=== PATIENT | male | born 1940 | race Caucasian/White ===

== ENCOUNTER → 2021-06-04 08:11 | Outpatient (CLI) | payer MEDICARE, OTHER, SELFPAY ==
--- NOTE | ~2021-06-04 | US_ITS ---
US abdomen complete DATE: 06/04/2021 08:48 INDICATION: Chronic kidney disease TECHNIQUE: Real-time imaging and Doppler analysis of the abdomen COMPARISON: 06/01/2006 CT abdomen/aortic study FINDINGS: The pancreas is not well demonstrated due to overlying bowel gas. Hepatic steatosis. No hepatic space-occupying mass lesion is evident. Normal hepatopedal portal venou s flow. There are multiple shadowing echogenic foci within the gallbladder lumen, consistent with cholelithia sis. No gallbladder wall thickening or pericholecystic fluid collection. Negative sonographic Johnson' s sign. The common bile duct measures 5 mm, within normal limits. Right kidney measures approximately 10 cm length. 1.1 cm and 3.5 cm right renal cysts. There is diffu se increased echogenicity of the right renal parenchyma consistent with chronic renal disease. Left kidney measures 12.5 cm length. There is diffuse increased echogenicity of the left renal parenc hyma consistent with chronic renal disease. Normal splenic size. The urinary bladder is unremarkable. Inferior vena cava is unremarkable. There is ectasia of the distal abdominal aorta, measuring up to 2 .7 cm approximate maximal dimension. IMPRESSION: Cholelithiasis Hepatic steatosis Bilateral chronic renal disease Right renal cysts Reviewed, dictated and finalized at [facility]. Reviewed, dictated and finalized at [facility].
== END ==
PROVIDERS: PCP Family Medicine; Visit Provider Family Medicine
DX: N18.9 Chronic kidney disease, unspecified (principal); K80.20 Calculus of gallbladder without cholecystitis without obstruction; K86.0 Alcohol-induced chronic pancreatitis; N28.1 Cyst of kidney, acquired
CPT/HCPCS: 76700

== ENCOUNTER 2021-08-26 13:51 | Inpatient (IN) | payer MEDICARE, OTHER, SELFPAY ==
[2021-08-26] VITALS (7 sets, daily range): BP systolic 135–155; BP diastolic 60–68; PULSE 70–99; RESP 18–22; TEMP 36.7–38.3; O2SAT 91–100; BMI 33.4
--- NOTE | ~2021-08-26 | CT_ITS ---
EXAMINATION: CTA chest PE protocol EXAM DATE: 08/26/2021 17:01 INDICATION: Shortness of breath and chest pain. TECHNIQUE: Spiral CTA of the chest (pulmonary arteries) was performed with 100 cc Omnipaque 350 intr avenous contrast injection. Images were acquired during the pulmonary arterial phase. Coronal maxi mum intensity projection 3D-reconstructions were created by the technologist on dedicated workstation . Axial, coronal and sagittal reformatted images were reviewed. The dose-length product (DLP) for t his examination was 595.75 mGy-cm. The exposure was tailored according to patient size (auto mA exp osure control), and iterative reconstruction (ASIR) was used as additional dose reduction technique. Correlation is made to chest x-ray same date. FINDINGS: There are no pulmonary emboli in the 1st through 3rd order (central and interlobar) pulmon buddy arteries. Some loss of attenuation in the right basilar segmental pulmonary from respiratory mot ion, these regions not confidently evaluated. No Intraluminal filling defects identified. No thorac ic aortic dissection. There is left lower lobe medial segmental pneumonia, would favor bacterial or viral etiology given focality. There is trace left pleural effusion. Tracheobronchial tree is paten t. There is no mediastinal, hilar or axillary lymphadenopathy. There is no pneumothorax. Mild c ardiomegaly. There is mild to moderate coronary arterial calcification, arterial sclerosis. Upper a bdomen is unremarkable. There is thoracic spondylosis without osteoblastic or osteolytic lesions id entified. IMPRESSION: 1. Left lower lobe medial segmental pneumonia; recommend follow-up CT in 3 months to exclude any und erlying chronic process. 2. Trace left pleural effusion. 3. Cardiomegaly. 4. No pulmonary emboli suspected. Reviewed, dictated and finalized at location [facility]. 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 Left lower lobe medial segmental pneumonia; recommend follow-up CT in 3 mon ths to exclude any underlying chronic process. 2. Trace left pleural effusion. 3. Cardiomegaly. 4. No pulmonary emboli suspected.
--- NOTE | ~2021-08-26 | XR_ITS ---
EXAMINATION: XR chest 1V portable EXAM DATE: 08/26/2021 15:04 INDICATION: cp, sob, fever . TECHNIQUE: Portable AP frontal chest x-ray was obtained. Comparison is made to prior examination from 2008. FINDINGS: Some limitations from body habitus, underpenetration. The cardiac silhouette is enlarged. N o confluent consolidation, pneumothorax or pleural effusion suspected. There are bony degenerative c hanges. IMPRESSION: Cardiomegaly. Reviewed, dictated and finalized at location [facility]. L ATTORNEY IMPRESSION: Cardiomegaly.
--- NOTE | 2021-08-26 13:59 | ECG_ITS ---
Measurements Intervals [place] Rate: 89 P: 69 ND: 189 QRS: 17 QRSD: 102 T: 56 QT: 351 QTc: 427 Interpretive Statements SINUS RHYTHM VENTRICULAR PREMATURE COMPLEX BASELINE ARTIFACT- I, II, III, AVR, AVL, AVF BORDERLINE ECG Electronically Signed On 08-26-2021 14:53:11 PARAFFINER by Omar Coates D.O.
[2021-08-26 14:24] LABS: Basophils Percent Auto 0.2 % (0.2-1.2); Hematocrit 36.6 % (42.0-52.0); Hemoglobin 12.2 g/dL (14.0-18.0); Immature Granulocyte Absolute 0.09 K/mm3 (0.00-0.031); Immature Granulocyte Percent A 0.6 % (0-0.5); Lymphocytes Absolute Auto 0.91 K/mm3 (0.9-3.2); Lymphocytes Percent Auto 6.5 % (18.3-44.2); Mean Corpuscular HGB Conc 33.3 g/dl (32-36); Mean Corpuscular Hemoglobin 30.7 pg (26-34); Mean Corpuscular Volume 92.2 fl (80-100); Mean Platelet Volume 10.1 fl (7.4-10.4); Monocytes Absolute Auto 1.9 K/mm3 (0.1-0.6); Monocytes Percent Auto 13.6 % (2.6-8.5); Neutrophils Absolute Auto 11.1 K/mm3 (1.3-6.7); Neutrophils Percent Auto 79.1 % (45.5-73.1); Platelet Count Result 217 k/mm3 (150-375); Red Blood Count 3.97 M/mm3 (4.6-6.20)
[2021-08-26 14:36] LABS: INR 1.3; Partial Thromboplastin Time 31.1 SECONDS (22.3-36.8); Prothrombin Time 15.9 Seconds (11.1-14.7)
[2021-08-26 14:38] LABS: Alanine Aminotransferase 24 U/L (4-50); Albumin Level 4.1 g/dL (3.5-5.1); Alkaline Phosphatase 110 U/L (38-126); Anion Gap 10 mmol/L (8-16); Aspartate Amino Transferase 28 U/L (17-59); Bilirubin,Total 0.9 mg/dL (0.2-1.3); Blood Urea Nitrogen 22 mg/dL (9-20); Calcium 8.3 mg/dL (8.4-10.2); Carbon Dioxide 20 mmol/L (22-30); Chloride 97 mmol/L (98-107); Estimated CRCL calculation 43 ml/min; Estimated Glomerular Filt Rate 45; Glucose 134 mg/dL (65-110); Lipase 68 U/L (23-300); Potassium 4.4 mmol/L (3.4-5.0); Sodium 127 mmol/L (137-145)
[2021-08-26 14:50] LABS: Troponin I 0.017 ng/mL (0.000-0.034)
--- NOTE | 2021-08-26 15:33 | ED.SOB ---
HPI - SOB/Dyspnea General Chief Complaint: Shortness of Breath/Dyspnea Stated Complaint: sob Time Seen by Provider: 08/26/21 14:47 Source: RN notes reviewed History of Present Illness HPI Narrative: Patient presents emergency department from home for cough. Patient states that he began to feel sick on August 24. He states he had a cough this been nonproductive as well as generalized fatigue and low-grade fever. States today he developed midsternal chest pain in the lower midsternal chest that only occurs when he takes a deep inspiration but does not occur at any other time he denies any abdominal pain nausea vomiting diarrhea or any other symptoms states that he took a Tylenol early this morning but is had no other medical. Patient states he has had a Covid vaccine as well as booster. Patient states he has been feeling more weak states that he fell today while trying to put on his pants and it took him numerous attempts just to be able to get up on his own he lives by himself Related Data Home Medications Medication Instructions Recorded Confirmed aspirin 81 mg tablet,delayed 81 mg PO DAILY 07/30/19 08/26/21 release Allergies Allergy/AdvReac Type Severity Reaction Status Date / Time No Known Allergies Allergy Mild Verified 08/26/21 15:34 Review of Systems Review of Systems: Gen.: Fever ENT: Denies congestion Respiratory: Ports shortness of breath and CV: Reports midsternal chest pain worse with deep inspiration GI: Denies abdominal pain nausea, emesis or diarrhea Musculoskeletal: Denies back pain or muscle pain Neuro: Denies numbness, tingling, weakness or focal weakness Skin: Denies rash Except as documented, all other systems reviewed and negative [facility] Past Medical History Medical History (Updated 08/26/21 @ 18:02 by Joselito Browne DO) Benign essential HTN Surgical History Surgical History H/O hernia repair History of appendectomy History of back surgery History of hip replacement Family History Family History Mother Patient's mother is , Onset Age: 98 Father Patient's father is , Onset Age: 49 Sibling Family history of malignant neoplasm of breast in first degree relative, Onset Age: 44 Other Family history of cardiovascular disease Social History Social History Alcohol intake: current Substance use: never Substance use type: does not use Gender identity (if verbalized by the patient): Male Exam Narrative: APPEARANCE: No acute distress, nontoxic, resting in bed EYES: EOMI HEENT: Normocephalic, atraumatic, OMM RESPIRATORY: No respiratory distress Clear to auscultation bilaterally with no rhonchi wheezing or rales. CARDIOVASCULAR: Regular rate and rhythm without murmurs rubs or gallops. ABDOMINAL: Soft, nontender, nondistended, no rebound or guarding MUSCULOSKELETAl: Moves all extremities. No clubbing, cyanosis or edema. NEURO: Awake and alert. Following commands, speech normal, no focal deficits SKIN:: Warm, dry. No rashes lesions or abrasions PSYCHIATRIC: Normal affect/mood, Course Course Emergency Course: Discussed Dr. Valentine presentation work-up agrees with admission at this time Discussed with patient and family results of workup and diagnosis. Discussed need for admission. Patient and family understand and agree to current treatment plan Vital Signs Vital signs: Vital Signs Temperature 100.8 F H 08/26/21 13:57 Pulse Rate 90 08/26/21 13:57 Respiratory Rate 20 08/26/21 13:57 Blood Pressure 155/61 H 08/26/21 13:57 Pulse Oximetry 97 08/26/21 13:57 Temperature 99.5 F 08/26/21 17:38 Pulse Rate 75 08/26/21 17:38 Respiratory Rate 22 H 08/26/21 17:38 Blood Pressure 135/60 08/26/21 17:38 Pulse Oximetry 92 08/26/21 1
[2021-08-26] MEDS: ASPIRIN 81 MG CHEWABLE TABLET 324 MG PO (15:56)
[2021-08-26] MEDS: ACETAMINOPHEN 500 MG TABLET 1000 MG PO (15:57)
[2021-08-26 16:15] LABS: D Dimer 2.36 ug/mL (<0.48)
[2021-08-26 16:25] LABS: Lactic Acid Reflex 1.2 mmol/L (0.7-2.1)
[2021-08-26 16:41] LABS: Lactate Dehydrogenase 442 U/L (313-618)
[2021-08-26] MEDS: SODIUM CHLORIDE 0.9% IV 1,000 ML 999 ML IV CONT (17:35)
[2021-08-26] MEDS: SODIUM CHLORIDE 0.9% IV 1,000 ML 80 ML IV CONT ×2 (19:30→20:49)
--- NOTE | 2021-08-26 19:53 | ADMGEN ---
This patient, Wilfredo Gutiérrez, was admitted to Medical Room 244-. Patient/family oriented to hospital policies and general routines including ID bracelet, bed and alarms, visiting hours, pain management, procedures, bathroom and other care routines, personal items, smoking policy, room service/diet, and visiting hours. Information on how to activate the Rapid Response Team has been discussed. Patient/Family are encouraged to report perceived risks to care and to ask questions if they do not understand what they are told or what they should do.
[2021-08-26 21:08] LABS: Troponin I 0.018 ng/mL (0.000-0.034)
[2021-08-27] VITALS (8 sets, daily range): BP systolic 120–153; BP diastolic 59–63; PULSE 72–81; RESP 16–18; TEMP 36.8–38.8; O2SAT 91–93
[2021-08-27] MEDS: ACETAMINOPHEN 325 MG TABLET 650 MG PO ×3 (00:31→21:32)
[2021-08-27] MEDS: IPRATROPIUM BR 0.02% INH SOLN 0.5 MG/2.5 ML VIAL INHALATION (00:51)
[2021-08-27] MEDS: ALBUTEROL SULFATE NEB 2.5 MG/3 ML INH 1.25 MG INHALATION (00:51)
[2021-08-27 06:16] LABS: Basophils Percent Auto 0.3 % (0.2-1.2); Eosinophils Percent Auto 0.1 % (0-4.4); Hematocrit 35.4 % (42.0-52.0); Hemoglobin 11.3 g/dL (14.0-18.0); Immature Granulocyte Absolute 0.09 K/mm3 (0.00-0.031); Immature Granulocyte Percent A 0.7 % (0-0.5); Lymphocytes Absolute Auto 1.57 K/mm3 (0.9-3.2); Lymphocytes Percent Auto 11.5 % (18.3-44.2); Mean Corpuscular HGB Conc 31.9 g/dl (32-36); Mean Corpuscular Hemoglobin 29.7 pg (26-34); Mean Corpuscular Volume 93.2 fl (80-100); Mean Platelet Volume 10.4 fl (7.4-10.4); Monocytes Absolute Auto 1.7 K/mm3 (0.1-0.6); Monocytes Percent Auto 12.7 % (2.6-8.5); Neutrophils Absolute Auto 10.2 K/mm3 (1.3-6.7); Neutrophils Percent Auto 74.7 % (45.5-73.1); Platelet Count Result 239 k/mm3 (150-375); Red Cell Distribution Width 13.1 % (11.5-14.5); White Blood Count 13.7 K/mm3 (4.5-10.0)
[2021-08-27 06:29] LABS: Alanine Aminotransferase 25 U/L (4-50); Albumin Level 3.4 g/dL (3.5-5.1); Alkaline Phosphatase 94 U/L (38-126); Anion Gap 12 mmol/L (8-16); Aspartate Amino Transferase 33 U/L (17-59); Bilirubin,Total 0.6 mg/dL (0.2-1.3); Blood Urea Nitrogen 23 mg/dL (9-20); Calcium 7.9 mg/dL (8.4-10.2); Carbon Dioxide 21 mmol/L (22-30); Chloride 96 mmol/L (98-107); Estimated CRCL calculation 39 ml/min; Estimated Glomerular Filt Rate 39; Glucose 114 mg/dL (65-110); Potassium 4.4 mmol/L (3.4-5.0); Sodium 129 mmol/L (137-145)
[2021-08-27] MEDS: allopurinoL 150 MG TABLET PO (10:38)
[2021-08-27] MEDS: ASPIRIN 81 MG ENTERIC TABLET PO (10:38)
[2021-08-27] MEDS: LOSARTAN POTASSIUM 50 MG TABLET PO (10:38)
[2021-08-27] MEDS: ATORVASTATIN 40 MG TABLET PO (10:38)
[2021-08-27] MEDS: ENOXAPARIN 40 MG/0.4 ML SYRINGE SUB-Q (10:39)
--- NOTE | 2021-08-27 15:24 | PM.IMHP ---
H&P: HPI History of Present Illness Date/Time: 08/27/21 15:24 Patient is 81-year-old male past medical history of essential hypertension, hyperlipidemia, gout presents to ED with complaints of dyspnea cough. Symptom onset was 3 days ago. Nonproductive cough leading to fatigue and fevers. He has some chest pain associated with cough. He has been vaccinated for COVID-19 and also had a booster shot. Patient was too weak to around his house. He does not recall getting pneumonias in the past. In the ED: Labs showed leukocytosis 14,000, negative for COVID-19, chest x-ray CTA show left lower lobe segmental pneumonia without pulmonary embolism. Patient to be admitted for weakness from acute acquired pneumonia. His breathing comfortably on room air. Patient was very weak and will likely need physical therapy. Chief Complaint: cough Review of Systems Review of Systems: Constitutional: No Fever, No Chills, No Night Sweat. He endorses malaise and fatigue, generalized weakness. ENT/Mouth: No Hearing Changes, No Ear Pain, No Nasal Congestion, No Sinus Pain, No Hoarseness, No sore throat, No Rhinorrhea, No Swallowing Difficulty Eyes: No Eye Pain, No Redness, No Vision Changes Cardiovascular: No Chest Pain, No Palpitations, No Dyspnea on Exertion, No Orthopnea, No Claudication, No Edema Respiratory: Endorses cough and shortness of breath. He denies wheezing Gastrointestinal: No Nausea, No Vomiting, No Diarrhea, No Constipation, No Abdominal Pain, No Heartburn, No Hematochezia, No Melena Genitourinary: No Dysuria, No Urinary Frequency, No Hematuria, No Urinary Incontinence, No Urgency Musculoskeletal: No Arthralgias, No Myalgias, No Joint Swelling, No Joint Stiffness, No Back Pain Skin: No Skin Lesions, No Pruritis, No Hair Changes Neuro: No Weakness, No Numbness, No Paresthesias, No Loss of Consciousness, No Syncope, No Dizziness, No Headache Psych: No Anxiety/Panic, No Depression, No Insomnia Heme: No Bruising, No Bleeding Lymph: No Adenopathy Endocrine: No Polyuria, No Polydipsia, No Temperature Intolerance PMFSH Past Medical History Medical History Benign essential HTN Gout, unspecified Mixed hyperlipidemia Surgical History Surgical History H/O hernia repair History of appendectomy History of back surgery History of hip replacement Family History Family History Mother Patient's mother is , Onset Age: 98 Father Patient's father is , Onset Age: 49 Sibling Family history of malignant neoplasm of breast in first degree relative, Onset Age: 44 Other Family history of cardiovascular disease Social History Social History Smoking status: Former smoker Tobacco type: cigarettes Smoking end date: 09/20/73 Alcohol intake: current Drinks per week: 1 Substance use: never Substance use type: does not use Gender identity (if verbalized by the patient): Male Spiritual care concerns: No Meds Home Medications and Allergies Home Medications Medication Instructions Recorded Confirmed Type aspirin 81 mg tablet,delayed 81 mg PO DAILY 07/30/19 08/26/21 History release atorvastatin 40 mg tablet See Rx Instructions .ROUTE 12/13/20 08/26/21 Rx .COMPLEX #90 each losartan 50 mg tablet 50 mg PO DAILY #90 tablet 05/16/21 08/26/21 Rx allopurinol 300 mg tablet 150 mg PO DAILY #90 tablet 06/05/21 08/26/21 Rx Allergies Allergy/AdvReac Type Severity Reaction Status Date / Time No Known Allergies Allergy Mild Verified 08/26/21 15:34 Vital Signs Vital Signs - 24 hr 08/26/21 15:50 08/26/21 17:38 08/26/21 19:51 Temperature 37.5 C 36.7 C Pulse Rate 78 75 70 Respiratory Rate 22 H 18 Blood Pressure 135/60 155/68 H
[2021-08-28 06:00] VITALS: BP 149/69; PULSE 86; RESP 16; TEMP 37.6; O2SAT 94
[2021-08-28 06:20] LABS: Basophils Percent Auto 0.3 % (0.2-1.2); Eosinophils Percent Auto 0.2 % (0-4.4); Hematocrit 34.3 % (42.0-52.0); Hemoglobin 11.3 g/dL (14.0-18.0); Immature Granulocyte Absolute 0.09 K/mm3 (0.00-0.031); Immature Granulocyte Percent A 0.8 % (0-0.5); Lymphocytes Absolute Auto 0.86 K/mm3 (0.9-3.2); Lymphocytes Percent Auto 7.2 % (18.3-44.2); Mean Corpuscular HGB Conc 32.9 g/dl (32-36); Mean Corpuscular Hemoglobin 30.5 pg (26-34); Mean Corpuscular Volume 92.5 fl (80-100); Mean Platelet Volume 10.1 fl (7.4-10.4); Monocytes Absolute Auto 1.6 K/mm3 (0.1-0.6); Monocytes Percent Auto 13.1 % (2.6-8.5); Neutrophils Absolute Auto 9.4 K/mm3 (1.3-6.7); Neutrophils Percent Auto 78.4 % (45.5-73.1); Platelet Count Result 244 k/mm3 (150-375); Red Blood Count 3.71 M/mm3 (4.6-6.20); Red Cell Distribution Width 13.1 % (11.5-14.5); White Blood Count 11.9 K/mm3 (4.5-10.0)
[2021-08-28 06:33] LABS: Anion Gap 10 mmol/L (8-16); Blood Urea Nitrogen 21 mg/dL (9-20); Carbon Dioxide 18 mmol/L (22-30); Chloride 98 mmol/L (98-107); Estimated CRCL calculation 44 ml/min; Estimated Glomerular Filt Rate 45; Glucose 116 mg/dL (65-110); Sodium 126 mmol/L (137-145)
[2021-08-28] MEDS: ENOXAPARIN 40 MG/0.4 ML SYRINGE SUB-Q (09:45)
[2021-08-28] MEDS: ATORVASTATIN 40 MG TABLET PO (09:45)
[2021-08-28] MEDS: ASPIRIN 81 MG ENTERIC TABLET PO (09:45)
[2021-08-28] MEDS: LOSARTAN POTASSIUM 50 MG TABLET PO (09:45)
[2021-08-28] MEDS: allopurinoL 150 MG TABLET PO (09:45)
--- NOTE | 2021-08-28 12:03 | PCPTNOTE ---
Attempted to see patient for Physical Therapy session this date; patient refused. No reason given, patient just stated no, not today
[2021-08-28 14:00] VITALS: BP 129/59; PULSE 95; RESP 16; TEMP 36.8; O2SAT 71
[2021-08-28] MEDS: guaiFENesin 12 HR 600 MG TABCR 1200 MG PO ×2 (15:04→21:01)
--- NOTE | 2021-08-28 16:45 | PM.IMPN ---
Progress Note: A&P Assessment and Plan (1) Sepsis: Code(s): A41.9 - Sepsis, unspecified organism Status: Acute (2) Community acquired pneumonia: Code(s): J18.9 - Pneumonia, unspecified organism Status: Acute (3) Chronic renal insufficiency: Code(s): N18.9 - Chronic kidney disease, unspecified Status: Acute (4) Hyponatremia: Code(s): E87.1 - Hypo-osmolality and hyponatremia Status: Acute (5) Benign essential HTN: Code(s): I10 - Essential (primary) hypertension Status: Acute Additional Plan # community-acquired pneumonia, left lower lobe -segmental left lower lobe pneumonia -antibiotics:azithromycin, cefepime from 08/27/2021- -patient had fever yesterday despite azithromycin Rocephin, antibiotics changed to cefepime and azithromycin on 08/27/2021, no subsequent fevers, clinical improvement and decrease of leukocytosis -keep oxygen saturation greater than 90%, currently on room air -stopping IV fluids -p.r.n. Tylenol for pain or fever. 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 -sodium 129, likely due to dehydration -DALIA creatinine at 1.7 improved to 1.5, baseline appears to be around 1.4 -sodium dropped to 126 # generalized weakness -likely secondary to pneumonia infection, continue physical therapy evaluation treatment, patient will likely go home may need home health # chronic conditions -essential hypertension: Continue Cozaar 50 mg daily (kidney function appears to be more chronic) -hyperlipidemia: Continue Lipitor 40 mg daily, aspirin 81 mg daily -gout: Continue on allopurinol 150 mg daily Diet: Heart healthy DVT prophylaxis: Lovenox Code status: Full code Disposition: Pending clinical course, PT and OT evaluate Subjective Date/time seen: 08/28/21 16:45 Patient seen examined. He is doing well today. Afebrile. Originally he was started on Rocephin azithromycin and had a fever despite being on those antibiotics. Repeat blood cultures were done and antibiotic was changed to cefepime and azithromycin. Since the change she has had no more fevers and is doing well. Will continue for couple more days and then discharge him on a home regimen. Leukocytosis starting to improve. Patient denies fever, chills, nausea, vomiting, diarrhea. He is having bowel movements but still feels weak. Review of Systems Review of Systems: All systems reviewed & are unremarkable except as noted in HPI and below Exam Narrative: - GENERAL: Pleasant elderly male in no acute distress breathing comfortably on room air. - EYES: EOMI. Anicteric. - HENT: Moist mucous membranes. - LUNGS: Coarse lung sounds, no wheezing or rales. - CARDIOVASCULAR: Regular rate and rhythm. No murmur. No JVD. - ABDOMEN: Soft, non-tender and non-distended. No palpable masses. - EXTREMITIES: No edema. Peripheral pulses 2+. Non-tender. - NEUROLOGIC: No focal neurological deficits. CN II-XII grossly intact. 5/5 muscle strength upper extremities. I did not assess his gait - PSYCHIATRIC: Awake, Alert and oriented x 3. Appropriate mood and affect. - SKIN: No rashes or lesions. Warm. - LYMPH: No cervical lymphadenopathy. Objective Data Vital Signs Vital Signs: Vital Signs - 24 hr 08/27/21 22:00 08/28/21 06:00 08/28/21 14:00 Temperature 36.8 C 37.6 C 36.8 C Pulse Rate 81 86 95 Respiratory Rate 16 16 16 Blood Pressure 153/63 H 149/69 H 129/59 L Pulse Oximetry 93 94 71 L Intake/Output Intake/Output: Intake & Output 08/25/21 08/26/21 08/27/21 08/28/21 23:59 23:59 23:59 23:59 Intake Total 2300 2530 1420 Output Total 350 900 Balance 2300 2180 520 Meds/Results Medications: Active Medications Generic Name Dose Route Start Last Admin Trade Name Freq PRN Reason Stop Dose Admin Acetaminophen 650 mg 08/26/21 23:46 08/27/21 21:32 Acetaminophen 325 Mg Tabl
[2021-08-28 22:00] VITALS: BP 145/64; PULSE 71; RESP 18; TEMP 37.1; O2SAT 96
[2021-08-29 06:00] VITALS: BP 157/73; PULSE 73; RESP 16; TEMP 37.1; O2SAT 94
[2021-08-29 06:10] LABS: Basophils Percent Auto 0.3 % (0.2-1.2); Eosinophils Absolute Auto 0.2 K/mm3 (0-0.3); Eosinophils Percent Auto 2.2 % (0-4.4); Hematocrit 31.7 % (42.0-52.0); Hemoglobin 10.4 g/dL (14.0-18.0); Immature Granulocyte Absolute 0.07 K/mm3 (0.00-0.031); Immature Granulocyte Percent A 0.8 % (0-0.5); Lymphocytes Absolute Auto 1.64 K/mm3 (0.9-3.2); Mean Corpuscular HGB Conc 32.8 g/dl (32-36); Mean Corpuscular Hemoglobin 30.4 pg (26-34); Mean Corpuscular Volume 92.7 fl (80-100); Mean Platelet Volume 10.1 fl (7.4-10.4); Monocytes Absolute Auto 1.5 K/mm3 (0.1-0.6); Neutrophils Absolute Auto 5.7 K/mm3 (1.3-6.7); Neutrophils Percent Auto 62.7 % (45.5-73.1); Platelet Count Result 253 k/mm3 (150-375); Red Blood Count 3.42 M/mm3 (4.6-6.20); Red Cell Distribution Width 13.2 % (11.5-14.5); White Blood Count 9.1 K/mm3 (4.5-10.0)
[2021-08-29 06:24] LABS: Anion Gap 10 mmol/L (8-16); Blood Urea Nitrogen 19 mg/dL (9-20); Calcium 7.9 mg/dL (8.4-10.2); Carbon Dioxide 23 mmol/L (22-30); Chloride 98 mmol/L (98-107); Estimated CRCL calculation 44 ml/min; Estimated Glomerular Filt Rate 45; Glucose 101 mg/dL (65-110); Potassium 3.9 mmol/L (3.4-5.0); Sodium 131 mmol/L (137-145)
[2021-08-29] MEDS: ATORVASTATIN 40 MG TABLET PO (09:25)
[2021-08-29] MEDS: LOSARTAN POTASSIUM 50 MG TABLET PO (09:25)
[2021-08-29] MEDS: ASPIRIN 81 MG ENTERIC TABLET PO (09:25)
[2021-08-29] MEDS: guaiFENesin 12 HR 600 MG TABCR 1200 MG PO ×2 (09:25→20:15)
[2021-08-29] MEDS: allopurinoL 150 MG TABLET PO (09:25)
[2021-08-29] MEDS: ENOXAPARIN 40 MG/0.4 ML SYRINGE SUB-Q (09:25)
[2021-08-29 14:33] VITALS: BP 124/62; PULSE 64; RESP 16; TEMP 36.9; O2SAT 98
--- NOTE | 2021-08-29 16:22 | PM.IMPN ---
Progress Note: A&P Assessment and Plan (1) Sepsis: Code(s): A41.9 - Sepsis, unspecified organism Status: Acute (2) Community acquired pneumonia: Code(s): J18.9 - Pneumonia, unspecified organism Status: Acute (3) Chronic renal insufficiency: Code(s): N18.9 - Chronic kidney disease, unspecified Status: Acute (4) Bacteremia due to Gram-positive bacteria: Code(s): R78.81 - Bacteremia Status: Acute Additional Plan # community-acquired pneumonia, left lower lobe # sepsis due to pneumonia, resolved # gram-positive cocci bacteremia -segmental left lower lobe pneumonia -antibiotics:azithromycin 08/27-08/29, cefepime from 08/27/2021-, vancomycin 08/29/2021- -patient had fever yesterday despite azithromycin Rocephin, antibiotics changed to cefepime and azithromycin on 08/27/2021, no subsequent fevers, clinical improvement and decrease of leukocytosis. blood cultures growing Gram-positive cocci, will continue vancomycin until we see what is growing, possibility of MRSA. repeat blood cultures, possible contaminant however due to his critical illness on presentation this may be a real bacteremia -keep oxygen saturation greater than 90%, currently on room air -p.r.n. Tylenol for pain or fever -elevated D-dimer 2.36, CTA was done showing pneumonia left lower lobe, no PE - leukocytosis normalized # hypovolemic hyponatremia # acute kidney injury on CKD stage IIIB -sodium up to 131 -DALIA creatinine at 1.7 improved to 1.5, baseline appears to be around 1.4 -will trend # generalized weakness -likely secondary to pneumonia infection and possible bacteremia, continue physical therapy evaluation treatment, patient will need walker and will go home with home health # chronic conditions -essential hypertension: Continue Cozaar 50 mg daily (kidney function appears to be more chronic) -hyperlipidemia: Continue Lipitor 40 mg daily, aspirin 81 mg daily -gout: Continue on allopurinol 150 mg daily Diet: Heart healthy DVT prophylaxis: Lovenox Code status: Full code Disposition: Home with home health, and a walker (previously uses cane), awaiting blood culture results Subjective Date/time seen: 08/29/21 16:22 Patient seen and examined. Is clinically doing well on the cefepime, vital signs are normal. His labs are normalizing. Blood cultures from 08/27/2021 growing Gram-positive cocci likely Staph infection. Likely bacteremia secondary to pneumonia. We will make sure this is not a contaminant. I am adding vancomycin today for possible MRSA. Continue cefepime, stopping Zithromax. Will repeat blood cultures today. It appears blood cultures from 08/26/2021 have been negative and the subsequent blood cultures the next day when he had a fever were positive. At this time I think it is prudent to make sure we finding cultures and sensitivities for his infection to curate a more specific antibiotic plan. Otherwise plan will be home with home health with walker. Patient denies fever, chills, nausea, vomiting, diarrhea. He endorses weakness but feels better. Review of Systems Review of Systems: All systems reviewed & are unremarkable except as noted in HPI and below Exam Narrative: - GENERAL: Pleasant elderly male in no acute distress breathing comfortably on room air. - EYES: EOMI. Anicteric. - HENT: Moist mucous membranes. - LUNGS: Coarse lung sounds, no wheezing or rales. - CARDIOVASCULAR: Regular rate and rhythm. No murmur. No JVD. - ABDOMEN: Soft, non-tender and non-distended. No palpable masses. - EXTREMITIES: No edema. Peripheral pulses 2+. Non-tender. - NEUROLOGIC: No focal neurological deficits. CN II-XII grossly intact. 5/5 muscle strength upper extremities. - PSYCHIATRIC: Awake, Alert and oriented x 3. Appropriate mood and affect. - SKIN: No rashes or lesions. Warm. - LYMPH: No cervical lymphadenopathy. Objective Data Vital Signs Vital Signs: Vital Signs - 24 hr 08/28/21 22:00 08/29/21 06
[2021-08-29 20:15] VITALS: RESP 18; O2SAT 96
[2021-08-29 22:00] VITALS: BP 133/62; PULSE 70; RESP 18; TEMP 37.1; O2SAT 96
--- NOTE | 2021-08-30 | ECHO_ITS ---
Patient Info Name: Wilfredo Gutiérrez Age: 81 years : 1940 Gender: Male Ht: 71 in Wt: 239 lbs BSA: 2.36 m2 HR: 66 bpm BP: 156 / 71 mmHg Technical Quality: Good Exam Date: 08/30/2021 1:52 PM Exam Location: [facility] Patient Status: Inpatient Admit Date: 08/27/2021 Staff Ordering Physician: Dany Valentine DO Fretted Instrument Repairer: Jarred Johnson, RADHA, RT Attending Provider: Dany Valentine DO Referring Physician: Serge NATION; Exam Type: CA echo doppler color flow Study Info Indications R65.20 - Severe sepsis without septic shock Complete two-dimensional, color flow and Doppler transthoracic echocardiogram is performed. Strain analysis performed. Summary 1. Complete two-dimensional, color flow and Doppler transthoracic echocardiogram is performed. 2. Left ventricular chamber dimension is normal. 3. Left ventricular systolic function is preserved, estimated at 50-55%. 4. There is mildly increased left ventricular wall thickness. 5. The left ventricular diastolic function is grade I diastolic dysfunction. 6. E/e' 11 is mildly elevated. 7. Global longitudinal strain is abnormal at -14.7%. 8. Left atrial chamber dimension is mildly enlarged. 9. Right atrial chamber dimension is mildly enlarged. 10. There is moderate aortic valve sclerosis. 11. There is trace aortic valve regurgitation. 12. The mitral valve has mildly calcified annulus. 13. There is mild mitral valve regurgitation. 14. Mild pulmonary hypertension, estimated pulmonary arterial systolic pressure is 41 mmHg. 15. Dilated inferior vena cava with >50% collapse upon inspiration consistent with elevated right atrial pressure, 10 mmHg. Left Ventricle E/e' 11 is mildly elevated. Global longitudinal strain is abnormal at -14.7%. Left ventricular chamber dimension is normal. Left ventricular systolic function is preserved, estimated at 50-55%. There is mildly increased left ventricular wall thickness. The left ventricular diastolic function is grade I diastolic dysfunction. Right Ventricle Right ventricular systolic function is normal and with normal TAPSE 2.5 cm. Right ventricular chamber dimension is normal. Left Atria Left atrial chamber dimension is mildly enlarged. Right Atria Right atrial chamber dimension is mildly enlarged. Aortic Valve The aortic valve is trileaflet. There is moderate aortic valve sclerosis. There is no aortic valve stenosis. There is trace aortic valve regurgitation. Pulmonic Valve There is no pulmonic regurgitation. Mitral Valve The mitral valve has mildly calcified annulus. There is no mitral valve stenosis. There is mild mitral valve regurgitation. Tricuspid Valve There is no tricuspid valve regurgitation. Mild pulmonary hypertension, estimated pulmonary arterial systolic pressure is 41 mmHg. Pericardium/Pleural There is no pericardial effusion. Inferior Vena Cava Dilated inferior vena cava with >50% collapse upon inspiration consistent with elevated right atrial pressure, 10 mmHg. Aorta The aortic root size at the sinus of Valsalva is normal. Left Ventricular Outflow Tract Name Value Normal LVOT 2D LVOT Diameter 2.2 cm LVOT Doppler
[2021-08-30 05:25] LABS: Hematocrit 32.7 % (42.0-52.0); Hemoglobin 10.4 g/dL (14.0-18.0); Mean Corpuscular HGB Conc 31.8 g/dl (32-36); Mean Corpuscular Hemoglobin 29.5 pg (26-34); Mean Corpuscular Volume 92.6 fl (80-100); Platelet Count Result 293 k/mm3 (150-375); Red Blood Count 3.53 M/mm3 (4.6-6.20); Red Cell Distribution Width 13.2 % (11.5-14.5); White Blood Count 9.3 K/mm3 (4.5-10.0)
[2021-08-30 06:00] VITALS: BP 156/71; PULSE 65; RESP 20; TEMP 36.1; O2SAT 98
[2021-08-30 08:35] LABS: Anion Gap 10 mmol/L (8-16); Blood Urea Nitrogen 20 mg/dL (9-20); Calcium 8.2 mg/dL (8.4-10.2); Carbon Dioxide 25 mmol/L (22-30); Chloride 99 mmol/L (98-107); Estimated CRCL calculation 44 ml/min; Estimated Glomerular Filt Rate 45; Glucose 100 mg/dL (65-110); Potassium 4.5 mmol/L (3.4-5.0); Sodium 134 mmol/L (137-145)
[2021-08-30] MEDS: LOSARTAN POTASSIUM 50 MG TABLET PO (09:31)
[2021-08-30] MEDS: ATORVASTATIN 40 MG TABLET PO (09:31)
[2021-08-30] MEDS: allopurinoL 150 MG TABLET PO (09:31)
[2021-08-30] MEDS: guaiFENesin 12 HR 600 MG TABCR 1200 MG PO ×2 (09:31→20:21)
[2021-08-30] MEDS: ENOXAPARIN 40 MG/0.4 ML SYRINGE SUB-Q (09:31)
[2021-08-30] MEDS: ASPIRIN 81 MG ENTERIC TABLET PO (09:31)
--- NOTE | 2021-08-30 14:36 | PM.IMPN ---
Progress Note: A&P Assessment and Plan (1) Bacteremia due to Gram-positive bacteria: Code(s): R78.81 - Bacteremia Status: Acute (2) Sepsis: Code(s): A41.9 - Sepsis, unspecified organism Status: Acute (3) Community acquired pneumonia: Code(s): J18.9 - Pneumonia, unspecified organism Status: Acute (4) Chronic renal insufficiency: Code(s): N18.9 - Chronic kidney disease, unspecified Status: Acute Additional Plan # community-acquired pneumonia, left lower lobe # sepsis due to pneumonia, resolved # blood cultures Staph lugdunesis -segmental left lower lobe pneumonia -antibiotics:azithromycin 08/27-08/29, cefepime from 08/27/2021-, vancomycin 08/29/2021- -for now will treat as true blood infection, continue antibiotics until speciation, awaiting results, likely give 2 weeks of antibiotics -echocardiogram today with Gram-positive cocci bacteremia -keep oxygen saturation greater than 90%, currently on room air # hypovolemic hyponatremia # acute kidney injury on CKD stage IIIB -sodium up to 134 -DALIA creatinine at 1.7 improved to 1.5, baseline appears to be around 1.4 -will trend # generalized weakness -likely secondary to pneumonia infection and possible bacteremia, continue physical therapy evaluation treatment, patient will need walker and will go home with home health # chronic conditions -essential hypertension: Continue Cozaar 50 mg daily (kidney function appears to be more chronic) -hyperlipidemia: Continue Lipitor 40 mg daily, aspirin 81 mg daily -gout: Continue on allopurinol 150 mg daily Diet: Heart healthy DVT prophylaxis: Lovenox Code status: Full code Disposition: Home with home health, and a walker (previously uses cane), awaiting blood culture sensitivities. Likely home tomorrow Subjective Date/time seen: 08/30/21 14:36 Patient seen examined. Blood culture growing Staph Lugdunesis with his clinical symptoms I a.m. in favor treating this is a true infection. Echocardiogram today. Will likely discharge tomorrow. Will give 2 weeks of treatment. Sensitivity still pending. Patient denies fever, chills, nausea, vomiting, diarrhea. He feels still weak but improving daily. Review of Systems Review of Systems: All systems reviewed & are unremarkable except as noted in HPI and below Exam Narrative: - GENERAL: Pleasant elderly male in no acute distress breathing comfortably on room air. - EYES: EOMI. Anicteric. - HENT: Moist mucous membranes. - LUNGS: Coarse lung sounds, no wheezing or rales. - CARDIOVASCULAR: Regular rate and rhythm. No murmur. No JVD. - ABDOMEN: Soft, non-tender and non-distended. No palpable masses. - EXTREMITIES: No edema. Peripheral pulses 2+. Non-tender. - NEUROLOGIC: No focal neurological deficits. CN II-XII grossly intact. 5/5 muscle strength upper extremities. - PSYCHIATRIC: Awake, Alert and oriented x 3. Appropriate mood and affect. - SKIN: No rashes or lesions. Warm. - LYMPH: No cervical lymphadenopathy. Objective Data Vital Signs Vital Signs: Vital Signs - 24 hr 08/29/21 20:15 08/29/21 22:00 08/30/21 06:00 Temperature 37.1 C 36.1 C L Pulse Rate 70 65 Respiratory Rate 18 18 20 Blood Pressure 133/62 156/71 H Pulse Oximetry 96 96 98 Intake/Output Intake/Output: Intake & Output 08/27/21 08/28/21 08/29/21 08/30/21 23:59 23:59 23:59 23:59 Intake Total 2530 2510 3400 1280 Output Total 350 2245 1700 900 Balance 2180 265 1700 380 Meds/Results Medications: Active Medications Generic Name Dose Route Start Last Admin Trade Name Freq PRN Reason Stop Dose Admin Acetaminophen 650 mg 08/26/21 23:46 08/27/21 21:32 Acetaminophen 325 Mg Tablet PO 650 mg Q4H PRN Administration Mild Pain (1-3) or Fever Allopurinol 150 mg 08/27/21 09:00 08/30/21 09:31 Allopurinol 150 Mg Tablet PO 150 mg DAILY RICO Administration Aspirin 81 mg 08/27/21 09:00 08/30/21 09:31 Aspirin 81 Mg Enteric Tablet PO 8
[2021-08-30 15:02] VITALS: BP 143/66; PULSE 69; RESP 20; TEMP 36.6; O2SAT 100
[2021-08-30 22:00] VITALS: BP 142/65; PULSE 62; RESP 18; TEMP 36.7; O2SAT 97
[2021-08-31 06:00] VITALS: BP 148/60; PULSE 68; RESP 18; TEMP 36.6; O2SAT 97
[2021-08-31] MEDS: allopurinoL 150 MG TABLET PO (08:26)
[2021-08-31] MEDS: LOSARTAN POTASSIUM 50 MG TABLET PO (08:26)
[2021-08-31] MEDS: ASPIRIN 81 MG ENTERIC TABLET PO (08:26)
[2021-08-31] MEDS: ATORVASTATIN 40 MG TABLET PO (08:26)
[2021-08-31] MEDS: guaiFENesin 12 HR 600 MG TABCR 1200 MG PO (08:26)
[2021-08-31] MEDS: ENOXAPARIN 40 MG/0.4 ML SYRINGE SUB-Q (08:27)
--- NOTE | 2021-08-31 10:35 | PCOTNOTE ---
Attempted OT treatment, patient reports to tired to work with OT at this time and just wants to rest. Will follow and attempt at later time, RN notified.
--- NOTE | 2021-08-31 10:43 | PCOTNOTE ---
Attempted OT treatment, patient reports does not want to participate with therapy at this time and is resting, will follow and attempt at later time.
--- NOTE | 2021-08-31 11:58 | PM.DS ---
DS: Admitting Diagnosis Discharge Date 08/31/2021 Admitting Diagnosis Left lower lobe community-acquired pneumonia DS: Discharge Diagnosis Discharge Diagnosis (1) Bacteremia due to Gram-positive bacteria: Code(s): R78.81 - Bacteremia Status: Acute (2) Sepsis: Code(s): A41.9 - Sepsis, unspecified organism Status: Acute (3) Community acquired pneumonia: Code(s): J18.9 - Pneumonia, unspecified organism Status: Acute (4) Chronic renal insufficiency: Code(s): N18.9 - Chronic kidney disease, unspecified Status: Acute (5) Hyponatremia: Code(s): E87.1 - Hypo-osmolality and hyponatremia Status: Acute (6) Benign essential HTN: Code(s): I10 - Essential (primary) hypertension Status: Acute DS: Summary Hospital Course Reason for hospitalization: Pneumonia, sepsis Hospital Course: Patient is a 81-year-old male past medical history of essential hypertension, hyperlipidemia, gout will presents to ED with complaints of dyspnea and cough on 08/27/2021. Symptom onset was 3 days prior to admission. Labs consistent with sepsis with leukocytosis and fever. CT scan of chest shows left lower lobe segmental pneumonia. He was started on Rocephin azithromycin, which was escalated to cefepime azithromycin after having fever the next day. Blood cultures from day 2 when he had the fever grew pansensitive Staph lugdunesis. Subsequent blood cultures have been negative and also blood cultures from admission have been negative.. Patient clinical improvement daily, labs normalized. It is unclear if that was a true bacteremia, is a common skin organism, however he did have that fever. Echocardiogram was done which showed normal EF 50-55% without any signs of vegetations. To be on the safe side we decided to continue 10 days total antibiotics. He has completed 5 days of antibiotics inpatient and will be discharged home with 5 days of Augmentin to complete 10 day antibiotic course for possible bacteremia. At time of discharge patient's vitals are stable, labs stable, patient to for discharge. Patient given a walker, at baseline uses cane. Patient to follow-up with home health. Patient understands and agrees with plan. Time Spent with Patient Time attestation: Total time spent providing and/or coordinating discharge services:35 Exam Narrative: - GENERAL: Pleasant elderly male in no acute distress breathing comfortably on room air. - EYES: EOMI. Anicteric. - HENT: Moist mucous membranes. - LUNGS: Coarse lung sounds, no wheezing or rales. - CARDIOVASCULAR: Regular rate and rhythm. No murmur. No JVD. - ABDOMEN: Soft, non-tender and non-distended. No palpable masses. - EXTREMITIES: No edema. Peripheral pulses 2+. Non-tender. - NEUROLOGIC: No focal neurological deficits. CN II-XII grossly intact. 5/5 muscle strength upper extremities. - PSYCHIATRIC: Awake, Alert and oriented x 3. Appropriate mood and affect. - SKIN: No rashes or lesions. Warm. - LYMPH: No cervical lymphadenopathy. DS: Data Data Completed and Pending Labs on day of discharge: Preliminary micro results at discharge 08/27/21 17:28 Blood Culture - Preliminary Blood Staphylococcus lugdunesis 08/29/21 17:16 Blood Culture - Preliminary Blood 08/29/21 17:07 Blood Culture - Preliminary Blood 08/27/21 17:29 Blood Culture - Preliminary Blood 08/26/21 15:41 Blood Culture - Preliminary Blood 08/26/21 15:49 Blood Culture - Preliminary Blood Discharge Plan Discharge Attending physician on discharge: Dany Valentine Discharging Clinician: Dany Valentine Anticipated Discharge Date/Time: 08/31/21 11:09 Patient Disposition: Home Health Service Activity: as tolerated Diet: regular Discharge Instructions: You had a left lower lobe pneumonia also had a blood culture growing Staph lugdunesis. You had been on appropriate antibiotics with cefepime and will require 5 more days o
== END 2021-08-31 14:10 | disposition home health service (06) | DRG 194 ==
LOC: ANHED 18:16 → ANH2MED 19:12
PROVIDERS: Admitting Provider Student in an Organized Health Care Education/Training Program; Emergency Provider Emergency Medicine; PCP Family Medicine; Visit Provider Student in an Organized Health Care Education/Training Program
DX: J18.9 Pneumonia, unspecified organism (principal); R78.81 Bacteremia; E87.1 Hypo-osmolality and hyponatremia; N17.9 Acute kidney failure, unspecified; B95.7 Other staphylococcus as the cause of diseases classified elsewhere; Z20.822 Contact with and (suspected) exposure to COVID-19; I12.9 Hypertensive chronic kidney disease with stage 1 through stage 4 chronic kidney disease, or unspecified chronic kidney disease; N18.32 Chronic kidney disease, stage 3b; E78.2 Mixed hyperlipidemia; M10.9 Gout, unspecified; Z96.649 Presence of unspecified artificial hip joint; Z90.49 Acquired absence of other specified parts of digestive tract; Z87.891 Personal history of nicotine dependence; Z79.82 Long term (current) use of aspirin
CPT/HCPCS: 36415; 71045; 71275; 80048; 80053; 83605; 83615; 83690; 84484; 85025; 85027; 85380; 85610; 85730; 86140; 87040; 87077; 87186; 87426; 93005; 93306; 96361; 96365; 96367; 97110; 97116; 97162; 97165; 97530; 97535; 99285; A9270; C9803; G0378; J0456; J0692; J0696; J1650; J3370; J7030; Q9967

== ENCOUNTER → 2021-12-14 10:57 | Outpatient (CLI) | payer MEDICARE, OTHER, SELFPAY ==
--- NOTE | ~2021-12-14 | CT_ITS ---
EXAMINATION: CT diagnostic chest wo con DATE: 12/14/2021 11:21 INDICATION: Pneumonia follow-up, personal history of nicotine dependence TECHNIQUE: Computed tomography (CT) of the chest was performed without intravenous contrast. The dose -length product (DLP) was 610.20 mGy-cm. Automated exposure control and iterative reconstruction tech [employer] were employed. COMPARISON: 08/26/2021 FINDINGS: The previously described left lower lobe airspace opacities have resolved. No new or suspic ious airspace opacity is identified. There is no pleural effusion or pneumothorax. No pathologically enlarged thoracic lymph nodes are identified. The heart size is normal. Stones are present in the non distended gallbladder. There is a 4.1 cm cyst of the right kidney. There are bridging osteophytes at multiple levels in the spine, consistent with diffuse idiopathic skeletal hyperostosis (DISH). IMPRESSION: 1. Resolved the left lower lobe pneumonia. Reviewed, dictated and finalized at location F.
== END ==
PROVIDERS: PCP Physician Assistant; Visit Provider Physician Assistant
DX: J18.9 Pneumonia, unspecified organism (principal)
CPT/HCPCS: 71250

== ENCOUNTER 2023-03-02 08:21 | Outpatient (CLI) | payer MEDICARE, OTHER, SELFPAY ==
--- NOTE | ~2023-03-02 | US_ITS ---
EXAMINATION: US aorta [facility] DATE: 03/02/2023 09:22 INDICATION: Abdominal aortic aneurysm screening. TECHNIQUE: Grayscale, color Doppler, and pulsed Doppler images of the aorta and common iliac arteries were obtained. COMPARISON: CT 06/01/2006 FINDINGS: The aorta demonstrates a 3.0 cm fusiform infrarenal aneurysm. The right common iliac artery is normal in caliber. The left common iliac artery is normal in caliber. IMPRESSION: 1. 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 Reviewed, dictated and finalized at location A.
--- NOTE | ~2023-03-02 | US_ITS ---
EXAMINATION: US venous doppler [facility] DATE: 03/02/2023 09:22 INDICATION: Left lower limb swelling. Other specified soft tissue disorders. TECHNIQUE: Grayscale ultrasound images without and with compression and Doppler ultrasound images of the left lower extremity veins were obtained. COMPARISON: None. FINDINGS: The visualized portions of left common femoral vein, profunda (deep) femoral vein, femoral vein, popl iteal vein, posterior tibial veins, and greater saphenous vein outflow are patent. IMPRESSION: 1. No deep venous thrombosis. Reviewed, dictated and finalized at location A.
== END 2023-03-02 08:22 | disposition home or self-care (01) ==
PROVIDERS: PCP Family Medicine; Visit Provider Emergency Medicine
DX: M79.89 Other specified soft tissue disorders (principal); Z87.891 Personal history of nicotine dependence; I71.43 Infrarenal abdominal aortic aneurysm, without rupture
CPT/HCPCS: 76706; 93971

== ENCOUNTER 2023-03-27 09:29 | Outpatient (CLI) | payer MEDICARE, OTHER, SELFPAY ==
--- NOTE | 2023-03-27 09:39 | ECHO_ITS ---
Patient Info Name: Wilfredo Gutiérrez Age: 83 years : 1940 Gender: Male Ht: 72 in Wt: 225 lbs BSA: 2.30 m2 HR: 60 bpm BP: 122 / 66 mmHg Technical Quality: Fair Exam Date: 03/27/2023 9:50 AM Exam Location: [facility] Patient Status: Outpatient Admit Date: 03/27/2023 Staff Ordering Physician: Aidtya Leger MD Information Systems Specialist: aMry Damon RDCS Attending Provider: dAitya Leger MD Referring Physician: Arsen NOVAK; Exam Type: CA echo doppler color flow Study Info Indications R01.1 - Cardiac murmur, unspecified Complete two-dimensional, color flow and Doppler transthoracic echocardiogram is performed. Summary 1. Complete two-dimensional, color flow and Doppler transthoracic echocardiogram is performed. 2. Left ventricular chamber dimension is mildly enlarged. 3. Left ventricular systolic function is mildly reduced, estimated at 45-50%. 4. There is mild concentric increased left ventricular wall thickness. 5. The left ventricular diastolic function is grade I diastolic dysfunction. 6. E/e' 9 is minimally elevated. 7. Left atrial chamber dimension is moderately enlarged. 8. Right atrial chamber dimension is mildly enlarged. 9. There is mild aortic valve sclerosis. 10. The mitral valve has moderately calcified annulus. 11. There is trace tricuspid valve regurgitation. 12. No pulmonary hypertension, estimated pulmonary arterial systolic pressure is 24 mmHg. Left Ventricle E/e' 9 is minimally elevated. Left ventricular chamber dimension is mildly enlarged. Left ventricular systolic function is mildly reduced, estimated at 45-50%. There is mild concentric increased left ventricular wall thickness. The left ventricular diastolic function is grade I diastolic dysfunction. Right Ventricle Right ventricular chamber dimension is normal. Right ventricular systolic function is normal. Left Atria Left atrial chamber dimension is moderately enlarged. Right Atria Right atrial chamber dimension is mildly enlarged. Aortic Valve The aortic valve is trileaflet. There is mild aortic valve sclerosis. There is no aortic valve stenosis. There is no aortic valve regurgitation. Pulmonic Valve There is no pulmonic regurgitation. Mitral Valve The mitral valve has moderately calcified annulus. There is no mitral valve stenosis. There is no mitral valve regurgitation. Tricuspid Valve There is trace tricuspid valve regurgitation. No pulmonary hypertension, estimated pulmonary arterial systolic pressure is 24 mmHg. Pericardium/Pleural There is no pericardial effusion. Inferior Vena Cava Normal inferior vena cava with >50% collapse upon inspiration consistent with normal right atrial pressure, 5 mmHg. Aorta The aortic root size at the sinus of Valsalva is normal. Left Ventricular Outflow Tract Name Value Normal LVOT 2D LVOT Diameter 2.0 cm LVOT Doppler LVOT Peak Gradient 6 mmHg LVOT Mean Gradient 4 mmHg LVOT VTI 32 cm LVOT VTI/AV VTI Ratio 0.8 LVOT Stroke Volume 96 ml LVOT CO 5.7 l/min LVOT CI
== END 2023-03-27 09:30 | disposition home or self-care (01) ==
LOC: ANHCARD 09:31
PROVIDERS: PCP Emergency Medicine; Visit Provider Emergency Medicine
DX: R01.1 Cardiac murmur, unspecified (principal); I51.7 Cardiomegaly; R93.1 Abnormal findings on diagnostic imaging of heart and coronary circulation; I10 Essential (primary) hypertension
CPT/HCPCS: 93306

== ENCOUNTER 2024-10-24 09:51 | Outpatient (CLI) | payer MEDICARE, OTHER, SELFPAY | END 2024-10-24 09:52 | disposition home or self-care (01) | PROVIDERS: PCP Family Medicine; Visit Provider Nurse Practitioner | DX: E21.5 Disorder of parathyroid gland, unspecified (principal) | CPT/HCPCS: 76536 ==